=== PATIENT | female | born 1975 | race Caucasian/White ===

== ENCOUNTER 2017-04-28 13:45 | Emergency (ER) | payer OTHER ==
[2017-04-28 15:37] VITALS: BP 134/92
--- NOTE | 2017-04-28 16:23 | UC ---
Throat Pain/Nasal Cristóbal HPI - HPI Summary HPI Summary: complaint of nasal congestion and cough that started approx 10 days ago feeling pressure in her forehaead andface productive cough bilateral ear pain for 2 days denies fever , sore throat, has been taking mucinex allergy medicaiton and cough drops - History of Current Complaint Chief Complaint: UCRespiratory Stated Complaint: COUGH Time Seen by Provider: 04/28/17 15:59 Hx Obtained From: Patient Hx Last Menstrual Period: 04/24/17 - Allergies/Home Medications Allergies/Adverse Reactions: Allergies Allergy/AdvReac Type Severity Reaction Status Date / Time No Known Allergies Allergy Verified 04/28/17 15:37 PMH/Surg Hx/FS Hx/Imm Hx Previously Healthy: Yes Endocrine History Of: Reports: Diabetes Cardiovascular History Of: Reports: Hypertension - Surgical History Surgical History: Yes Surgery Procedure, Year, and Place: X2. D&C - Family History Known Family History: Negative: Cardiac Disease, Hypertension, Diabetes - Social History Occupation: Employed Full-time Lives: With Family Alcohol Use: None Substance Use Type: None Smoking Status (MU): Current Every Day Smoker Type: Cigarettes Amount Used/How Often: 2-3 CIGARETTES Length of Time of Smoking/Using Tobacco: 15 YEARS Have You Smoked in the Last Year: Yes Cessation Counseling: Patient Advised to Stop Review of Systems Constitutional: Negative Skin: Negative Eyes: Negative ENT: Nasal Discharge Respiratory: Cough Cardiovascular: Negative Gastrointestinal: Negative Genitourinary: Negative Motor: Negative Neurovascular: Negative Musculoskeletal: Negative Neurological: Negative Psychological: Negative All Other Systems Reviewed And Are Negative: Yes Physical Exam Triage Information Reviewed: Yes Appearance: No Pain Distress, Well-Nourished Vital Signs: Initial Vital Signs Temp 97.2 F 04/28/17 15:33 Pulse 96 04/28/17 15:33 Resp 18 04/28/17 15:33 BP 134/92 04/28/17 15:33 Pulse Ox 98 04/28/17 15:33 Vital Signs Reviewed: Yes Eyes: Positive: Conjunctiva Clear ENT: Positive: Pharyngeal erythema, Nasal congestion, Nasal drainage, TM bulging , Other: - frontal and maxillary sinus tenderness. Negative: TM red Neck: Positive: No Lymphadenopathy Respiratory: Positive: Lungs clear, Normal breath sounds, No respiratory distress, No accessory muscle use Cardiovascular: Positive: RRR, No Murmur, Pulses Normal Abdomen Description: Positive: Nontender, Soft Bowel Sounds: Positive: Present Musculoskeletal: Positive: No Edema Neurological Exam: Normal Psychological Exam: Normal Skin Exam: Normal Throat Pain/Nasal Course/Dx - Differential Dx/Diagnosis Differential Diagnosis/HQI/PQRI: Pharyngitis, Tonsillitis, URI, Other - bronchitis Provider Diagnoses: sinusitis Discharge - Discharge Plan Condition: Stable Disposition: HOME Patient Education Materials: Sinusitis (ED) Additional Instructions: Please start antibiotic as directed Increase fluids and rest Take acetaminophen or ibuprofen for fever or pain Please review your discharge instructions. If your symptoms do not improve please call your primary care provider or return to urgent care. Your blood pressure is pre-hypertensive reading. Please contact your primary care provider within 1 day -4 weeks for further evaluation
== END 2017-04-28 17:15 | disposition home or self-care (01) ==
LOC: UCEAST 13:45
DX: J32.9 Chronic sinusitis, unspecified (principal); H92.03 Otalgia, bilateral; E11.9 Type 2 diabetes mellitus without complications; I10 Essential (primary) hypertension; F17.210 Nicotine dependence, cigarettes, uncomplicated
CPT/HCPCS: 99212; G0463

== ENCOUNTER 2018-04-07 19:08 | Emergency (ER) | payer OTHER ==
[2018-04-07 19:26] VITALS: BP 129/84
--- NOTE | 2018-04-07 20:03 | UC ---
Jamie Morgan Gabriel, scribed for Shanthi Ronquillo MD on 04/07/18 at 1940 . Headache HPI - HPI Summary HPI Summary: This patient is a 43 year old F presenting to [facility] with a chief complaint of a CONWAY that began yesterday. Pt states she had a cough and a tickle in her throat 2 days ago. She states the headache began in the front of her head and then extended to the back of her neck. The patient rates the pain 7/10 in severity. Symptoms alleviated by putting warm cloth across face and Motrin. Took x 1 dose this am with improvement, not resolution. Patient reports fever of 101F this am - none since. Pt with nausea, vomiting yesterday. Improved today. + po soup. Pt reports sinus pressure "across my face" post nasal drainage, rhinorrhea , eye pressure. Denies blurry vision, chest pain, sob, abd pain. Patient denies ear pain, sore throat, and rash. Patients medication reviewed this visit. - History Of Current Complaint Chief Complaint: UCHeadache Stated Complaint: HEADACHE Time Seen by Provider: 04/07/18 19:17 Hx Obtained From: Patient Hx Last Menstrual Period: 03/14/2018 Onset/Duration: Lasting Days, Still Present Onset Of Symptoms: Gradual Initially Headache Was: Moderate Currently Pain Is: Current Pain Scale(0-10)= - 6-7 Pain Intensity: 7 Pain Scale Used: 0-10 Numeric Timing: Constant Character: Pressure Location of Headache: Frontal Aggravating Factor(s): Position Change - leaning forward Allevating Factor(s): Medication, Other (Noted In Comments) - heat Associated Signs And Symptoms: Positive: Nausea, Sinus Pressure, Fever, Other ( Noted In Comments) - fever of 101F, nausea yesterday. Negative: Dizziness, Vomiting, Neck Pain, Neck Stiffness, Decreased LOC, Visual Changes - Allergies/Home Medications Allergies/Adverse Reactions: Allergies Allergy/AdvReac Type Severity Reaction Status Date / Time No Known Allergies Allergy Verified 04/07/18 19:14 Home Medications: Home Medications Phenylephrine/Acetaminophn/Cpm [Nighttime Sinus Congestio] 2 tab PO DAILY PRN [History Confirmed 04/07/18] PMH/Surg Hx/FS Hx/Imm Hx Endocrine History: Diabetes Cardiovascular History: Hypertension - Surgical History Surgical History: Yes Surgery Procedure, Year, and Place: X2. D&C. Tubes tied. - Family History Known Family History: Negative: Cardiac Disease, Hypertension, Diabetes, Seizure Disorder - Social History Occupation: Employed Full-time Lives: With Family Alcohol Use: None Substance Use Type: None Smoking Status (MU): Current Every Day Smoker Type: Cigarettes Amount Used/How Often: 2-3 CIGARETTES Length of Time of Smoking/Using Tobacco: 15 YEARS Have You Smoked in the Last Year: Yes Review of Systems Constitutional: Fever Eyes: Blurred Vision, Other - eye pain ENT: Nasal Discharge, Sinus Pain/Tenderness, Other - post nasal drainage Gastrointestinal: Vomiting, Nausea Neurological: Headache All Other Systems Reviewed And Are Negative: Yes Physical Exam Triage Information Reviewed: Yes Appearance: Well-Appearing, No Pain Distress, Well-Nourished Vital Signs: Initial Vital Signs Temp 97.8 F 04/07/18 19:13 Pulse 91 04/07/18 19:13 Resp 18 04/07/18 19:13 BP 129/84 04/07/18 19:13 Pulse Ox 97 04/07/18 19:13 Vital Signs Reviewed: Yes Eye Exam: Normal Eyes: Positive: Conjunctiva Clear ENT Exam: Normal ENT: Positive: Normal ENT inspection, Hearing grossly normal, Pharynx normal, Pharyngeal erythema, Nasal congestion, TMs normal, Sinus tenderness - max sinuses R>L with palpation + frontal sinus discomfort, Other - TM x 2 turbinates inflammed and boggy + PND uvula midline Dental Exam: Normal Neck exam: Normal Neck: Positive: Supple, Nontender, No Lymphadenopathy Respiratory Exam: Normal Respiratory: Positive: Chest non-tender, Lungs clear, Normal breath sounds, No respiratory distress, No accessory muscle use Cardiovascular Exam: Normal Cardiovascular: Positive: RRR, No Murmur Abdominal Exam: Normal Abdomen Description: Positive: Nontender, No Organomegaly, Soft Bowel Sounds: Positive: Present Musculoskeletal Exam: Normal Musculoskeletal: Positive: Strength Intact Neurological Exam: Normal Neurological: Positive: Alert, Muscle Tone Normal Psychological Exam: Normal Psychological: Positive: Normal Response To Family Skin Exam: Normal Headache Course/Dx - Course Course Of Treatment: PT with max sinus and frontal sinus pain s/p 2 days prodrome of cough and uri. Pt wth fever this am - resolved with Motrin. Pt with exam c/w sinusitis. Rx aumgentin, flonase. pt aware may transiently incrased BG. humidified air. decongestant. secretion precaution. return precautions discussed. work note - Differential Dx/Diagnosis Provider Diagnoses: sinusitis Discharge - Sign-Out/Discharge Documenting (check all that apply): Discharge/Admit/Transfer - Discharge Plan Condition: Stable Disposition: HOME Prescriptions: Amoxicillin/Clavulanate TAB* [Augmentin TAB 875*] 875 mg PO BID #20 tab Fluticasone NASAL SPRAY 50MCG* [Flonase NASAL SPRAY 50MCG*] 2 spray BOTH NARES DAILY #1 btl Patient Education Materials: Sinusitis (ED) Forms: *Work Release Referrals: Ange ALVAREZ,Ulises Aviles [Primary Care Provider] - Additional Instructions: - Stay well hydrated. Drink plenty of non-alcoholic, non-caffinated beverages. - Alternate ibuprofen (Advil, Motrin) 600mg and Tylenol every 3 hours for pain or fever. Take with food. Do NOT take for more than 4-5 days. - These infections are spread by secretions - do NOT share eating or drinking utensils - clean items you share with other people such as cell phones, computer mouse, TV remote, computer tablets,etc. Once you have been antibiotics for 2 days, change your toothbrush and your pillowcase. - get plenty of restful sleep - humidify the air in the room where you sleep - boil water, run a hot steam shower, vaporizer, cups of water by heat register - okay to take over the counter decongestant and cough medication - Take antibiotics as prescribed until gone - use nasal spray as prescribed - this contains a steroid and may cause a slight increase in your blood glucose - contact your doctor or return with questions or concerns. Contact your doctor , return here, or go to the emergency department with any questions or concerns - uncontrolled fever or headaches, vision changes, rash, vomiting or other concerns - Billing Disposition and Condition Condition: STABLE Disposition: HOME The documentation as recorded by the Jamie morales Gabriel accurately reflects the service I personally performed and the decisions made by , Shanthi Ronquillo MD.
== END 2018-04-07 20:10 | disposition home or self-care (01) ==
LOC: UCEAST 19:08
DX: J32.9 Chronic sinusitis, unspecified (principal); R50.9 Fever, unspecified; R11.0 Nausea; H53.8 Other visual disturbances; E11.9 Type 2 diabetes mellitus without complications; Z79.84 Long term (current) use of oral hypoglycemic drugs; I10 Essential (primary) hypertension; F17.210 Nicotine dependence, cigarettes, uncomplicated
CPT/HCPCS: 99212; G0463

== ENCOUNTER 2018-04-15 18:47 | Emergency (ER) | payer OTHER ==
[2018-04-15] MEDS ORDERED: diPHENhydraMINE IV* 50 MG/ML 1 ml VIAL (BENADRYL) IV ONE (19:21)
[2018-04-15] MEDS ORDERED: NS 0.9% 1000 ML* 1,000 ML IV ONE (19:21)
[2018-04-15] MEDS ORDERED: Metoclopramide IV* 5 MG/ML 2 ML VIAL IV ONE (19:21)
[2018-04-15] MEDS ORDERED: Ketorolac INJ* 30 MG/ML 1 ML VIAL IV PUSH ONE (19:21)
--- NOTE | 2018-04-15 21:43 | RAD ---
INDICATION: Headaches COMPARISON: None TECHNIQUE: Axial images of the paranasal sinuses were acquired. Coronal and sagittal reconstructed images were obtained. FINDINGS: Frontal sinuses: The frontal sinuses are clear. Ethmoid sinuses: The ethmoid sinuses are clear. Maxillary sinuses: The maxillary sinuses are clear. Sphenoid sinuses: The sphenoid sinuses are clear. Nasal passageway: The nasal septum is midline. The nasal passageway is clear. The ostiomeatal complexes are patent. Orbits: The globes and intraconal contents are unremarkable. Brain: The visualized brain parenchyma is unremarkable. Other: None. IMPRESSION: THE PARANASAL SINUSES ARE CLEAR.
[2018-04-15 22:20] VITALS: BP 142/74
--- NOTE | 2018-04-16 01:19 | ED ---
Nely Morgan Nilda, scribed for Theron Pham MD on 04/15/18 at 2046 . Headache - HPI Summary HPI Summary: This patient is a 43 year old F presenting to [facility] accompanied by with a chief complaint of constant severe CONWAY (began as frontal now radiating to back of head) since 04/06/18. states pt went to clinic for symptoms and was given Abx Augmentin with no relief. The patient rates the pain 10/10 in severity. Patient reports chills (past 4-5 days), diaphoresis, and N/V (last vomited today at noon), but denies fever. NKDA. PMHx DM2 controlled with Metformin and Lantis (30mg). Pt states CONWAY are often related to Hx seasonal allergies. - History Of Current Complaint Chief Complaint: EDHeadache Stated Complaint: HEADACHE Time Seen by Provider: 04/15/18 20:32 Hx Obtained From: Patient Hx Last Menstrual Period: 03/14/2018 Onset/Duration: Sudden Onset, Started weeks ago, Still Present Currently Pain Is: Current Pain Scale(0-10)= - 10 Timing: Constant Location of Headache: Frontal Radiates to: back of head Allevating Factors: Nothing Associated Signs And Symptoms: Other (Noted In Comments) - chills (past 4-5 days ), diaphoresis, and N/V (last vomited today at noon), but denies fever. - Allergies/Home Medications Allergies/Adverse Reactions: Allergies Allergy/AdvReac Type Severity Reaction Status Date / Time No Known Allergies Allergy Verified 04/15/18 18:49 Home Medications: Home Medications Amoxicillin/Clavulanate TAB* [Augmentin TAB 875*] 875 mg PO BID 04/15/18 [ History Confirmed 04/15/18] Atorvastatin* [Lipitor*] 20 mg PO QPM 04/15/18 [History Confirmed 04/15/18] Insulin GLARGINE(*) [Lantus(*)] 30 units SUBCUT QPM 04/15/18 [History Confirmed 04/15/18] Lisinopril TAB* [Prinivil TAB*] 20 mg PO QPM 04/15/18 [History Confirmed ] metFORMIN* [Glucophage 1000 MG TAB *] 2,000 mg PO QPM 04/15/18 [History Confirmed 04/15/18] PMH/Surg Hx/FS Hx/Imm Hx Endocrine/Hematology History: Reports: Hx Diabetes Cardiovascular History: Reports: Hx Hypertension - Surgical History Surgery Procedure, Year, and Place: X2. D&C. Tubes tied. Infectious Disease History: No Infectious Disease History: Denies: Traveled Outside the [place] in Last 30 Days - Family History Known Family History: Negative: Cardiac Disease, Hypertension, Diabetes, Seizure Disorder - Social History Alcohol Use: None Substance Use Type: Reports: None Smoking Status (MU): Current Every Day Smoker Type: Cigarettes Amount Used/How Often: 2-3 CIGARETTES Length of Time of Smoking/Using Tobacco: 15 YEARS Have You Smoked in the Last Year: Yes Review of Systems Positive: Chills, Skin Diaphoresis. Negative: Fever Positive: Vomiting, Nausea Positive: Headache All Other Systems Reviewed And Are Negative: Yes Physical Exam - Summary Physical Exam Summary: Appearance: Well appearing, no pain distress Skin: warm, dry, reflects adequate perfusion Head/face: Tenderness to percussion frontal. Temporal arteries non tender. Globes are soft. Eyes: EOMI, FRANSISCA ENT: Serous effusion on left ear. Mucous clear yellow posterior pharynx Neck: supple, non-tender Respiratory: CTA, breath sounds present Cardiovascular: RRR, pulses symmetrical Abdomen: non-tender, soft Bowel Sounds: present Musculoskeletal: normal, strength/ROM intact Neuro: normal, sensory motor intact, A&Ox3 Triage Information Reviewed: Yes Vital Signs On Initial Exam: Initial Vitals Temp Pulse Resp BP Pulse Ox 97.4 F 94 16 135/90 97 04/15/18 18:49 04/15/18 18:49 04/15/18 18:49 04/15/18 18:49 04/15/18 18:49 Vital Signs Reviewed: Yes Diagnostics - Vital Signs Vital Signs Temp Pulse Resp BP Pulse Ox 04/15/18 18:49 97.4 F 94 16 135/90 97 - Laboratory Lab Results: Lab Results 04/15/18 Range/Units 20:44 POC Glucose (mg/dL) 159 H (70-100) mg/dL Lab Statement: Any lab studies that have been ordered have been reviewed, and results considered in the medical decision making process. - CT Sinuses CT Interpretation Completed By: Radiologist - The paranasal sinuses are clear. Dr. Pham has reviewed this radiology report. Re-Evaluation - Re-Evaluation First Eval Re-Evaluation Time: 21:43 Comment: Headache resolved Headache Course/Dx - Course Course Of Treatment: Patient with history of seasonal allergies that have been acting up. She has a serous effusion in her left ear. Globes are soft and temporal arteries are nontender. CT of the sinuses was performed given her facial discomfort. This was found to be negative. Her headache was treated here with complete relief. She does have a chronic headache syndrome. There is no high-risk features and she has neurologically intact. She is treated with Claritin-D and as needed promethazine for headaches. She'll follow-up with her primary care physician in the morning. - Diagnoses Differential Diagnosis/HQI/PQRI: Sinus Headache, Temporal Arteritis, Tension Headache, Viral Syndrome Provider Diagnoses: Seasonal allergies, Generalized headache Discharge - Sign-Out/Discharge Documenting (check all that apply): Discharge/Admit/Transfer - Discharge Plan Condition: Good Disposition: HOME Prescriptions: Loratadine/Pseudoephedrine [Claritin-D 24 Hour Tablet] 1 each PO DAILY PRN #20 tab.er.24h PRN Reason: allergies Promethazine TAB* [Phenergan Tab*] 25 mg PO Q6H PRN #20 tab PRN Reason: Headache Patient Education Materials: Allergic Rhinitis (ED), Acute Headache (ED) Forms: *Work Release Referrals: Ange ALVAREZ,Ulises Aviles [Primary Care Provider] - Additional Instructions: Stay well-hydrated. Ibuprofen, Benadryl may help with severe headaches along with prescribed medication. These will make you drowsy. Return with fever, uncontrolled blood sugars, worse or other concerns. - Billing Disposition and Condition Condition: GOOD Disposition: HOME The documentation as recorded by the Nely morales Nilda accurately reflects the service I personally performed and the decisions made by , Theron Pham MD.
== END 2018-04-15 22:15 | disposition home or self-care (01) ==
LOC: ED 18:47
DX: R51 Headache (principal); J30.2 Other seasonal allergic rhinitis; F17.210 Nicotine dependence, cigarettes, uncomplicated
CPT/HCPCS: 70486; 96360; 96374; 96375; 99282; J1200; J1885; J2765

== ENCOUNTER 2018-10-03 17:22 | Emergency (ER) | payer OTHER ==
[2018-10-03 17:31] VITALS: BP 129/88
--- NOTE | 2018-10-03 18:08 | ED ---
Respiratory - HPI Summary HPI Summary: 43 yo WF h/o COPD smoker c/o cough x 1 week, cough feels wet but cannot bring it up, denies f/c - History of Current Complaint Chief Complaint: UCRespiratory Stated Complaint: COUGH Time Seen by Provider: 10/03/18 17:40 Hx Obtained From: Patient Initial Severity: Moderate Current Severity: Moderate Pain Intensity: 5 Character: Cough (Nonproductive) Sputum Amount: Moderate - Allergy/Home Medications Allergies/Adverse Reactions: Allergies Allergy/AdvReac Type Severity Reaction Status Date / Time No Known Allergies Allergy Verified 04/15/18 18:49 Home Medications: Home Medications D-Methorphan/PE/Acetaminophen [Tylenol Cold Max Day Caplet] 10/03/18 [History] PMH/Surg Hx/FS Hx/Imm Hx Previously Healthy: No - COPD, smoker Endocrine/Hematology History: Reports: Hx Diabetes Cardiovascular History: Reports: Hx Hypertension Respiratory History: Reports: Hx Chronic Obstructive Pulmonary Disease (COPD) - Surgical History Surgery Procedure, Year, and Place: X2. D&C. Tubes tied. Infectious Disease History: No Infectious Disease History: Denies: Traveled Outside the [place] in Last 30 Days - Family History Known Family History: Negative: Cardiac Disease, Hypertension, Diabetes, Seizure Disorder - Social History Alcohol Use: None Substance Use Type: Reports: None Smoking Status (MU): Current Every Day Smoker Type: Cigarettes Amount Used/How Often: 2-3 CIGARETTES Length of Time of Smoking/Using Tobacco: 15 YEARS Have You Smoked in the Last Year: Yes Review of Systems Constitutional: Negative Eyes: Negative ENT: Negative Cardiovascular: Negative Positive: Cough Gastrointestinal: Negative Genitourinary: Negative Musculoskeletal: Negative Neurological: Negative Psychological: Normal All Other Systems Reviewed And Are Negative: Yes Physical Exam - Summary Physical Exam Summary: Vital Signs Reviewed: Yes Appearance: Positive: Well-Appearing Skin: Positive: Warm Head/Face: Positive: Normal Head/Face Inspection Eyes: Positive: EOMI, FRANSISCA ENT: Positive: Hearing grossly normal, Pharynx normal, TMs normal Neck: Positive: Supple, No Lymphadenopathy Respiratory/Lung Sounds: Positive: mildly decreased BS B/L, no wheezing Cardiovascular: Positive: RRR, S1, S2 Abdomen Description: Positive: Nontender, Soft Bowel Sounds: Positive: Present Musculoskeletal: Positive: Normal Neurological: Positive: CN Intact II-III Psychiatric:Positive: Normal Vital Signs On Initial Exam: Initial Vitals Temp Pulse Resp BP Pulse Ox 36.4 C 96 16 129/88 97 10/03/18 17:25 10/03/18 17:25 10/03/18 17:25 10/03/18 17:25 10/03/18 17:25 Diagnostics - Vital Signs Vital Signs Temp Pulse Resp BP Pulse Ox 10/03/18 17:25 36.4 C 96 16 129/88 97 - Laboratory Lab Statement: Any lab studies that have been ordered have been reviewed, and results considered in the medical decision making process. Disposition - Course Assessment/Plan: cough- CXR reveals B/B infiltrates- will tx for PNA with ceftin 500 BID x7 days - Diagnoses Provider Diagnoses: Bronchitis, PNA (pneumonia) Discharge - Sign-Out/Discharge Documenting (check all that apply): Patient Departure All imaging exams completed and their final reports reviewed: Yes - Discharge Plan Condition: Stable Disposition: HOME Prescriptions: Cefuroxime 500 MG(NF) 500 mg PO BID 14 Days #1 tab Patient Education Materials: Pneumonia (ED) Referrals: Ange ALVAREZ,Ulises Aviles [Primary Care Provider] - Additional Instructions: take medication as directed and NO SMOKING while on antibiotics - Billing Disposition and Condition Condition: STABLE Disposition: Home
[2018-10-03] MEDS ORDERED: ceFUROXime TAB(*) 250 MG PO ONE (18:40)
--- NOTE | 2018-10-04 08:03 | RAD ---
INDICATION: Cough COMPARISON: None TECHNIQUE: PA and lateral views of the chest were obtained. FINDINGS: The heart and mediastinum are normal in size and contour. There is a faint asymmetric patchy density at the lateral right lung base seen on the AP view. Elsewhere the lungs are grossly clear. There is no evidence of large pleural effusion. Visualized bones are normal for the patient's age. There is no radiographic evidence of free air beneath the diaphragm IMPRESSION: PATCHY DENSITY AT RIGHT LATERAL LUNG BASE WHICH COULD BE PNEUMONIA IN THE CORRECT CLINICAL SETTING. R1F
== END 2018-10-03 18:53 | disposition home or self-care (01) ==
LOC: UCEAST 17:22
DX: J18.9 Pneumonia, unspecified organism (principal); J40 Bronchitis, not specified as acute or chronic; I10 Essential (primary) hypertension; E11.9 Type 2 diabetes mellitus without complications; J44.9 Chronic obstructive pulmonary disease, unspecified; F17.210 Nicotine dependence, cigarettes, uncomplicated
CPT/HCPCS: 71046; 99212; G0463

== ENCOUNTER 2019-10-08 18:18 | Emergency (ER) | payer OTHER ==
[2019-10-08] MEDS ORDERED: NS 0.9% 1000 ML** 1,000 ML IV ONE (19:44)
[2019-10-08] MEDS ORDERED: diPHENhydraMINE IV* 50 MG/ML 1 ml VIAL (BENADRYL) IV ONE (19:45)
[2019-10-08] MEDS ORDERED: Metoclopramide IV* 5 MG/ML 2 ML VIAL IV ONE (19:45)
[2019-10-08] MEDS ORDERED: Ketorolac INJ* 30 MG/ML 1 ML VIAL IV ONE (19:45)
--- NOTE | 2019-10-08 20:30 | UC ---
Headache HPI - HPI Summary HPI Summary: Ms. Mcare has had a frontal and occipital headache for 3 days. She has a history of similar headaches but this one is worse than normal. She denies neck pain. She had a temperature of 100.0 at home which she calls a fever. - History Of Current Complaint Chief Complaint: UCHeadache Stated Complaint: HEADACHE FOR DAYS Time Seen by Provider: 10/08/19 19:38 Hx Obtained From: Patient, Family/Registered Dietitian Hx Last Menstrual Period: [id number] ?: No Onset/Duration: Gradual Onset Initially Headache Was: Moderate Currently Pain Is: Moderate Pain Intensity: 6 Timing: Constant Character: Throbbing Location of Headache: Frontal, Occipital Aggravating Factor(s): Nothing Allevating Factor(s): Nothing Associated Signs And Symptoms: Positive: Negative - Allergies/Home Medications Allergies/Adverse Reactions: Allergies Allergy/AdvReac Type Severity Reaction Status Date / Time No Known Allergies Allergy Verified 10/08/19 18:45 Home Medications: Home Medications Insulin LISPRO* [HumaLOG*] 0 units SUBCUT DIRECTED 10/08/19 [History Confirmed 10/08/19] Losartan TAB* [Cozaar TAB*] 100 mg PO DAILY 10/08/19 [History Confirmed 10/08/19 ] PMH/Surg Hx/FS Hx/Imm Hx Previously Healthy: Yes - Surgical History Surgical History: Yes Surgery Procedure, Year, and Place: X2. D&C. Tubes tied. - Family History Known Family History: Negative: Cardiac Disease, Hypertension, Diabetes, Seizure Disorder - Social History Alcohol Use: None Substance Use Type: None Smoking Status (MU): Light Every Day Tobacco Smoker Type: Cigarettes Amount Used/How Often: 2-3 CIGARETTES Length of Time of Smoking/Using Tobacco: 15 YEARS Have You Smoked in the Last Year: Yes Review of Systems All Other Systems Reviewed And Are Negative: Yes Constitutional: Positive: Negative Skin: Positive: Negative Eyes: Positive: Negative Motor: Positive: Negative Neurovascular: Positive: Negative Neurological: Positive: Headache Physical Exam - Summary Physical Exam Summary: She is nontoxic in appearance with stable vital signs Triage Information Reviewed: Yes Appearance: Well-Appearing, Pain Distress Vital Signs: Initial Vital Signs Temp 98.4 F 10/08/19 18:40 Pulse 103 10/08/19 18:40 Resp 16 10/08/19 18:40 BP 116/79 10/08/19 18:40 Pulse Ox 98 10/08/19 18:40 Vital Signs Reviewed: Yes Eye Exam: Normal ENT Exam: Normal - Her sinuses transilluminate well. Neck exam: Normal Neck: Positive: Supple, Nontender, No Lymphadenopathy Musculoskeletal Exam: Normal Neurological Exam: Normal Headache Course/Dx - Course Course Of Treatment: She was given a 'migraine cocktail' of IV normal saline, metoclopramide, ketorolac and diphenhydramine with near complete relief of her headache and 45 minutes. She was borderline tachycardic when she came in and review of her previous visits reveals that she typically runs in that area. I'm not sure the etiology of her headache but she is going to go home and try to get a good night 's sleep. I don't think any dangerous happening at this time. - Differential Dx/Diagnosis Provider Diagnosis: Headache Discharge ED - Sign-Out/Discharge Documenting (check all that apply): Patient Departure All imaging exams completed and their final reports reviewed: No Studies - Discharge Plan Condition: Stable Disposition: HOME Patient Education Materials: Acute Headache (ED) Referrals: Ange ALVAREZ,Ulises Aviles [Primary Care Provider] - - Billing Disposition and Condition Condition: STABLE Disposition: Home
[2019-10-08 21:28] VITALS: BP 118/78
== END 2019-10-08 21:15 | disposition home or self-care (01) ==
LOC: UCEAST 18:18
DX: R51 Headache (principal); F17.210 Nicotine dependence, cigarettes, uncomplicated
CPT/HCPCS: 96360; 96374; 96375; 99211; G0463; J1200; J1885; J2765

== ENCOUNTER 2019-10-10 10:33 | Emergency (ER) | payer OTHER ==
[2019-10-10] MEDS ORDERED: Metoclopramide IV* 5 MG/ML 2 ML VIAL IV SLOW PU ONE (11:26)
[2019-10-10] MEDS ORDERED: Acetaminophen TAB* 325 MG PO ONE ×2 (11:26→17:08)
[2019-10-10] MEDS ORDERED: NS 0.9% 1000 ML** 1,000 ML IV ONE ×3 (11:26→15:35)
--- NOTE | 2019-10-10 11:52 | ED ---
Headache - HPI Summary HPI Summary: The pt is a 44 yr [facility] beginning 5 days [employer]. The pt began having a gradually worsening headache at work starting 5 days ago and had a fever of 102 F last night. The headache is worst around her forehead and radiates to the back of her head. She rates her current pain intensity an 8/10. No aggravating or alleviating factors noted. She also reports vomiting, cough, and feeling cold but denies any nasal congestion, abd pain, or diarrhea. Patient reports a history of sinus infections, concerned she has one now. Denies purulent drainage from the nares or rhinorrhea. - History Of Current Complaint Chief Complaint: EDHeadache Stated Complaint: HEADACHE X5 DAYS PER PT Time Seen by Provider: 10/10/19 11:13 Hx Obtained From: Patient Hx Last Menstrual Period: [id number] Onset/Duration: Sudden Onset, Started days ago, Still Present Initially Headache Was: Initial Pain Scale(0-10)= - 8, Severe Currently Pain Is: Current Pain Scale(0-10)= - 8, Severe Timing: Constant Location of Headache: Frontal Radiates to: radiates to back of head Aggravating Factor: Nothing Allevating Factors: Nothing Associated Signs And Symptoms: Vomiting, Fever, Other (Noted In Comments) - pos - feeling cold, cough, neg - nasal congestion, abd pain, diarrhea - Allergies/Home Medications Allergies/Adverse Reactions: Allergies Allergy/AdvReac Type Severity Reaction Status Date / Time No Known Allergies Allergy Verified 10/10/19 10:38 PMH/Surg Hx/FS Hx/Imm Hx Endocrine/Hematology History: Reports: Hx Diabetes - DMII Cardiovascular History: Reports: Hx Hypertension Respiratory History: Reports: Other Respiratory Problems/Disorders Comment Only: Hx Chronic Obstructive Pulmonary Disease (COPD) - pt denies - Cancer History Hx Chemotherapy: No Hx Radiation Therapy: No - Surgical History Surgery Procedure, Year, and Place: X2. D&C. Tubes tied. - Immunization History Immunizations Up to Date: Yes Infectious Disease History: No Infectious Disease History: Denies: Traveled Outside the [place] in Last 30 Days - Family History Known Family History: Negative: Cardiac Disease, Hypertension, Diabetes, Seizure Disorder - Social History Alcohol Use: None Substance Use Type: Reports: None Hx Tobacco Use: Yes Smoking Status (MU): Light Every Day Tobacco Smoker Type: Cigarettes Amount Used/How Often: 2-3 CIGARETTES Length of Time of Smoking/Using Tobacco: 15 YEARS Have You Smoked in the Last Year: Yes Review of Systems Positive: Other - pos - feeling cold Positive: Other - pos - nasal congestion Positive: Cough Positive: Vomiting. Negative: Abdominal Pain, Diarrhea Positive: Headache All Other Systems Reviewed And Are Negative: Yes Physical Exam - Summary Physical Exam Summary: Constitutional: Well-developed, Well-nourished, Alert. (-) Distressed Skin: Warm, Dry HENT: Normocephalic; Atraumatic Eyes: Conjunctiva normal Neck: Musculoskeletal ROM normal neck. (-) JVD, (-) Stridor, (-) Nuchal rigidity Cardio: Tachycardic, Heart sounds normal; Intact distal pulses; Radial pulses are 2+ and symmetric. (-) Murmur Pulmonary/Chest wall: Effort normal. (-) Respiratory distress, (-) Wheezes, (-) Rales Abd: Soft, (-) tenderness, (-) Distension, (-) Guarding, (-) Rebound Musculoskeletal: (-) Edema Lymph: (-) Cervical adenopathy Neuro: Alert, Oriented x3, GCS of 15 Psych: Mood and affect Normal Triage Information Reviewed: Yes Vital Signs On Initial Exam: Initial Vitals Temp Pulse Resp BP Pulse Ox 99.8 F 122 16 152/88 96 10/10/19 10:35 10/10/19 10:35 10/10/19 10:35 10/10/19 10:35 10/10/19 10:35 Vital Signs Reviewed: Yes - Sandoval Coma Scale Best Eye Response: 4 - Spontaneous Best Motor Response: 6 - Obeys Commands Best Verbal Response: 5 - Oriented Coma Scale Total: 15 Procedures - Sedation Patient Received Moderate/Deep Sedation with Procedure: No Diagnostics - Vital Signs Vital Signs Temp Pulse Resp BP Pulse Ox 10/10/19 10:35 99.8 F 122 16 152/88 96 - Laboratory Result Diagrams: 10/10/19 11:42 10/10/19 11:42 Lab Statement: Any lab studies that have been ordered have been reviewed, and results considered in the medical decision making process. - CT Brain CT CT Interpretation Completed By: Radiologist Summary of CT Findings: IMPRESSION: NO ACUTE INTRACRANIAL PATHOLOGY. ED Physician has reviewed this report. Sinuses CT CT Interpretation Completed By: Radiologist Summary of CT Findings: IMPRESSION: THE PARANASAL SINUSES ARE CLEAR, WITHOUT EROSION, OSTEITIS, OR AIR-FLUID LEVEL. ED Physician has reviewed this report. Re-Evaluation - Re-Evaluation First Eval Re-Evaluation Time: 13:09 Comment: Pt would like to proceed with CT of sinuses before proceeding with any further workup. Discussed LP if neg CT. Second Eval Re-Evaluation Time: 15:35 Comment: Pt is feeling better and is eating food. Pt is still tachycardic and febrile - will give a liter of fluids, motrin and observe. Third Eval Re-Evaluation Time: 16:00 Comment: CSF w elevated protein, glucose (but serum glucose elevated). HSV, Lyme and [place] PCR sent. Patient ate food, feeling much better. Plan for discharge w close PCP f/u. Fourth Eval Change: Improved - HR down to 103, temp 100.2 feels much better. Headache Course/Dx - Course Course Of Treatment: 44 y/o F w hx DM p/w headache. - Patient reporting a frontal headache associated with sinus pain, fever, vomiting and feeling unwell. Patient denies upper respiratory symptoms, abdominal pain or diarrhea. Discussed with patient this could be a viral syndrome, influenza sent and negative. Labs notable for white count of 17. Patient has history of sinusitis however no rhinorrhea or nasal congestion on exam. Discussed with patient that we could do a CT scan of her sinuses given that she is concerned signs of infection, however other symptoms, she may need an LP to r/o meningitis. Patient agreeable to this. - Diagnoses Provider Diagnoses: Aseptic meningitis Discharge ED - Sign-Out/Discharge Documenting (check all that apply): Patient Departure - discharge - Discharge Plan Condition: Stable Disposition: HOME Prescriptions: Ondansetron ODT TAB* [Zofran 4 MG Odt TAB*] 4 mg PO Q8H PRN 4 Days #12 tab.odt PRN Reason: Nausea/Vomiting Ondansetron ODT TAB* [Zofran 4 MG Odt TAB*] 4 mg PO Q8H PRN 4 Days #12 tab.odt PRN Reason: Nausea/Vomiting Patient Education Materials: Viral Meningitis (ED), Acute Headache (ED) Referrals: Ange ALVAREZ,Ulises Aviles [Primary Care Provider] - 3 Days Additional Instructions: You were seen in the emergency department for a headache. Your CT scan did not show caused her pain, your labs suggestive a has a medical aseptic meningitis. There is no treatment for this aside from symptomatic treatment with fluids and nausea medications. Some studies were not completed at the time of discharge you'll be called with the relevant results. Please follow up with your primary care doctor in next 2-3 days and return to emergency department for worsening pain, vomiting, fevers or concerning symptoms. It was a pleasure taking care of you today. - Billing Disposition and Condition Condition: STABLE Disposition: Home - Attestation Statements Document Initiated by Phillip: Yes Documenting Scribe: Redd Freeman Provider For Whom Phillip is Documenting (Include Credential): Eufemia Christopher MD Scribe Attestation: IRedd, scribed for Eufemia Christopher MD on 10/10/19 at 1844. Scribe Documentation Reviewed: Yes Provider Attestation: The documentation as recorded by the Redd morales accurately reflects the service I personally performed and the decisions made by , Eufemia Christopher MD Status of Scribe Document: Viewed
[2019-10-10 12:02] LABS: Hematocrit 34 % (35-47); Hemoglobin 11.4 g/dL (12.0-16.0); Mean Corpuscular HGB Conc 34 g/dL (31-36); Mean Corpuscular Hemoglobin 29 pg (27-31); Mean Corpuscular Volume 85 fL (80-97); Mean Platelet Volume 7.4 fL (7.4-10.4); Platelet Count 314 10^3/uL (150-450); Red Blood Count 3.96 10^6 /uL (3.70-4.87); Red Cell Distribution Width 14 % (10-15); White Blood Count 17.1 10^3/uL (3.5-10.8)
[2019-10-10 12:05] LABS: ABS Basophils 0.1 10^3/ul (0-0.2); ABS Lymphocytes 1.7 10^3/ul (1.0-4.8); ABS Monocytes 1.8 10^3/ul (0-0.8); ABS Neutrophils 13.6 10^3/ul (1.5-7.7); Eosinophil % 0.2 %; Lymphocyte % 9.7 %
[2019-10-10 12:06] LABS: INR 1.21 (0.82-1.09)
[2019-10-10 12:19] LABS: Albumin 3.6 g/dL (3.2-5.2); Albumin/Globulin Ratio 1.1 (1-3); BUN/Creatinine Ratio 12.3 (8-20); EGFR African American 103.9 (>60); EGFR Non-African American 85.8 (>60); Globulin 3.2 g/dL (2-4); Potassium 3.6 mmol/L (3.5-5.0); Total Bilirubin 0.4 mg/dL (0.2-1.0); Total Protein 6.8 g/dL (6.4-8.9)
[2019-10-10 12:43] LABS: Influenza A Molecular NEGATIVE (Negative); Influenza B Molecular NEGATIVE (Negative)
[2019-10-10] MEDS ORDERED: Lidocaine 1% INJ* 10 MG/ML 30 ML SDV INJ ONE (13:38)
[2019-10-10] MEDS ORDERED: Midazolam* 1 MG/ML 2 ML VIAL (2 MG) IV SLOW PU ONE (13:38)
[2019-10-10 14:27] LABS: Body Fluid Source Cerebral Spinal
[2019-10-10 14:41] LABS: CSF Glucose 105 mg/dL (40-70)
[2019-10-10 14:57] LABS: Body Fluid Band 4 %; Body Fluid Mono 12 %
[2019-10-10] MEDS ORDERED: ceFAZolin 1 GM ADVAN(*) 1 GM in NS 0.9% 50 ML* 50 ML IVPB ONE (15:37)
[2019-10-10] MEDS ORDERED: Ibuprofen TAB* 400 MG PO ONE (15:59)
[2019-10-10 18:20] VITALS: BP 141/89
--- NOTE | 2019-10-12 12:20 | ED ---
Progress - Progress Note Progress Note: PROCEDURE: Lumbar Puncture INDICATION: Headache, fever PROCEDURE DOUBLE END TENON OPERATOR: Eufemia Christopher MD CONSENT: Informed consent was obtained and is in the chart PROCEDURE SUMMARY: A time-out was performed. The patient was placed in the left lateral decubitus position in a semi- position with help from the nursing staff. The area was cleansed and draped in usual sterile fashion. Anesthesia was achieved with local lidocaine 1%, 5 cc A 22 guage spinal needle was placed in the L4-5 interspace. On the 2nd attempt, clear cerebral spinal fluid was obtained. Four tubes were filled with 4 mL of CSF. These were sent for the usual tests. The patient had no immediate complications and tolerated the procedure well. Re-Evaluation - Re-Evaluation First Eval Re-Evaluation Time: 13:09 Comment: Pt would like to proceed with CT of sinuses before proceeding with any further workup. Discussed LP if neg CT. Second Eval Re-Evaluation Time: 15:35 Comment: Pt is feeling better and is eating food. Pt is still tachycardic and febrile - will give a liter of fluids, motrin and observe. Third Eval Re-Evaluation Time: 16:00 Comment: CSF w elevated protein, glucose (but serum glucose elevated). HSV, Lyme and [place] PCR sent. Patient ate food, feeling much better. Plan for discharge w close PCP f/u. Fourth Eval Change: Improved - HR down to 103, temp 100.2 feels much better. Course/Dx - Course Course Of Treatment: 44 y/o F w hx DM p/w headache. - Patient reporting a frontal headache associated with sinus pain, fever, vomiting and feeling unwell. Patient denies upper respiratory symptoms, abdominal pain or diarrhea. Discussed with patient this could be a viral syndrome, influenza sent and negative. Labs notable for white count of 17. Patient has history of sinusitis however no rhinorrhea or nasal congestion on exam. Discussed with patient that we could do a CT scan of her sinuses given that she is concerned signs of infection, however other symptoms, she may need an LP to r/o meningitis. Patient agreeable to this. - Diagnoses Provider Diagnoses: Aseptic meningitis Discharge ED - Sign-Out/Discharge Documenting (check all that apply): Patient Departure - Discharge Plan Condition: Stable Disposition: HOME Prescriptions: Ondansetron ODT TAB* [Zofran 4 MG Odt TAB*] 4 mg PO Q8H PRN 4 Days #12 tab.odt PRN Reason: Nausea/Vomiting Ondansetron ODT TAB* [Zofran 4 MG Odt TAB*] 4 mg PO Q8H PRN 4 Days #12 tab.odt PRN Reason: Nausea/Vomiting Patient Education Materials: Viral Meningitis (ED), Acute Headache (ED) Referrals: Ange ALVAREZ,Ulises Aviles [Primary Care Provider] - 3 Days Additional Instructions: You were seen in the emergency department for a headache. Your CT scan did not show caused her pain, your labs suggestive a has a medical aseptic meningitis. There is no treatment for this aside from symptomatic treatment with fluids and nausea medications. Some studies were not completed at the time of discharge you'll be called with the relevant results. Please follow up with your primary care doctor in next 2-3 days and return to emergency department for worsening pain, vomiting, fevers or concerning symptoms. It was a pleasure taking care of you today. - Billing Disposition and Condition Condition: STABLE Disposition: Home
[2019-10-12 15:54] LABS: CSF VDRL Negative (Negative)
[2019-10-12 16:43] LABS: HSV 1 PCR, CSF Negative (Negative); HSV 2 PCR, CSF Negative (Negative)
== END 2019-10-10 18:26 | disposition home or self-care (01) ==
LOC: ED 10:33
DX: G03.0 Nonpyogenic meningitis (principal); R11.10 Vomiting, unspecified; R05 Cough; R50.9 Fever, unspecified; R00.0 Tachycardia, unspecified; E11.9 Type 2 diabetes mellitus without complications; I10 Essential (primary) hypertension; F17.210 Nicotine dependence, cigarettes, uncomplicated
CPT/HCPCS: 36415; 62270; 70450; 70486; 80053; 82945; 83605; 84157; 85025; 85610; 86592; 86618; 87070; 87205; 87529; 89051; 96360; 96374; 96375; 99283; A9270-GY; J2250; J2765

== ENCOUNTER 2019-11-07 14:51 | Emergency (ER) | payer OTHER ==
[2019-11-07 15:09] VITALS: BP 121/77
--- NOTE | 2019-11-07 15:30 | UC ---
General HPI - HPI Summary HPI Summary: had aseptic meningitis last month-for the past month she still has been having fever, nausea---on /off. developed a different headache from what she had before ---it is now all in her sinuses nose and front of face. Patient reports her blood sugars are better now in in 140-150 - History of Current Complaint Chief Complaint: UCGeneralIllness Stated Complaint: HEADACHE, VOMITING Time Seen by Provider: 11/07/19 15:30 Hx Obtained From: Patient Hx Last Menstrual Period: 10/08/19 Onset/Duration: Gradual Onset, Lasting Days, Still Present Timing: Constant Pain Intensity: 8 Pain Location at: face/sinus - Allergy/Home Medications Allergies/Adverse Reactions: Allergies Allergy/AdvReac Type Severity Reaction Status Date / Time No Known Allergies Allergy Verified 11/07/19 15:06 Home Medications: Home Medications Ibuprofen 400 mg PO ONCE PRN 11/07/19 [History Confirmed 11/07/19] PMH/Surg Hx/FS Hx/Imm Hx Previously Healthy: No Endocrine History: Diabetes, Dyslipidemia Cardiovascular History: Hypertension - Surgical History Surgical History: Yes Surgery Procedure, Year, and Place: X2. D&C. Tubes tied. - Family History Known Family History: Negative: Cardiac Disease, Hypertension, Diabetes, Seizure Disorder - Social History Occupation: Employed Full-time Lives: With Family Alcohol Use: None Substance Use Type: None Smoking Status (MU): Light Every Day Tobacco Smoker Type: Cigarettes Amount Used/How Often: 1-2 CIGARETTES Length of Time of Smoking/Using Tobacco: 15 YEARS Have You Smoked in the Last Year: Yes Household Exposure Type: Cigarettes Review of Systems All Other Systems Reviewed And Are Negative: Yes Constitutional: Positive: Fever - subjective, Chills, Fatigue Skin: Positive: Negative Eyes: Positive: Negative ENT: Positive: Nasal Discharge, Sinus Congestion, Sinus Pain/Tenderness. Negative: Sore Throat Respiratory: Positive: Negative Cardiovascular: Positive: Negative Gastrointestinal: Positive: Vomiting - on occasion. Negative: Diarrhea Genitourinary: Positive: Negative Motor: Positive: Negative Neurovascular: Positive: Negative Musculoskeletal: Positive: Negative Neurological: Positive: Headache Psychological: Positive: Negative Is Patient Immunocompromised?: No Physical Exam Triage Information Reviewed: Yes Appearance: Well-Appearing - appears older than stated age but is not in any distress, No Pain Distress, Well-Nourished Vital Signs: Initial Vital Signs Temp 99 F 11/07/19 15:02 Pulse 110 11/07/19 15:02 Resp 16 11/07/19 15:02 BP 121/77 11/07/19 15:02 Pulse Ox 98 11/07/19 15:02 Vital Signs Reviewed: Yes Eye Exam: Normal Eyes: Positive: Conjunctiva Clear ENT Exam: Normal ENT: Positive: Normal ENT inspection, Hearing grossly normal, Pharynx normal, Nasal congestion, Nasal drainage, TMs normal, Sinus tenderness, Uvula midline. Negative: Tonsillar swelling, Trismus, Muffled voice, Hoarse voice, Dental tenderness Dental Exam: Normal Neck exam: Normal Neck: Positive: Supple, Nontender, No Lymphadenopathy Respiratory Exam: Normal Respiratory: Positive: Chest non-tender, Lungs clear, Normal breath sounds, No respiratory distress, No accessory muscle use Cardiovascular Exam: Normal Cardiovascular: Positive: No Murmur, Pulses Normal, Brisk Capillary Refill, Tachycardia Abdominal Exam: Normal Abdomen Description: Positive: Nontender, No Organomegaly, Soft Musculoskeletal Exam: Normal Musculoskeletal: Positive: Strength Intact, ROM Intact, No Edema Neurological Exam: Normal Neurological: Positive: Alert, Muscle Tone Normal Psychological Exam: Normal Skin Exam: Normal Course/Dx - Course Course Of Treatment: flonase, augmentin, prn zofran increase fluids and follow with pcp in 1 day-- refused work note - Diagnoses Provider Diagnosis: Sinusitis nasal Discharge ED - Sign-Out/Discharge Documenting (check all that apply): Patient Departure All imaging exams completed and their final reports reviewed: No Studies - Discharge Plan Condition: Stable Disposition: HOME Prescriptions: Amoxicillin/Clavulanate TAB* [Augmentin TAB 875*] 875 mg PO BID #20 tab Fluticasone NASAL SPRAY 50MCG* [Flonase NASAL SPRAY 50MCG*] 2 spray BOTH NARES DAILY #1 btl Ondansetron TAB* [Zofran 4 MG Tab*] 4 mg PO Q6H PRN #10 tab PRN Reason: nausea/vomiting Patient Education Materials: Sinusitis (ED) Referrals: Ange ALVAREZ,Ulises Aviles [Primary Care Provider] - 1 Day - Billing Disposition and Condition Condition: STABLE Disposition: Home
== END 2019-11-07 16:04 | disposition home or self-care (01) ==
LOC: UCEAST 14:51
DX: J32.9 Chronic sinusitis, unspecified (principal); E11.9 Type 2 diabetes mellitus without complications; I10 Essential (primary) hypertension; F17.210 Nicotine dependence, cigarettes, uncomplicated; R68.83 Chills (without fever); R53.83 Other fatigue; R11.10 Vomiting, unspecified
CPT/HCPCS: 99212; G0463